=== PATIENT | male | born 1985 | race Caucasian/White ===

== ENCOUNTER 2017-10-04 21:45 | Emergency (ER) | payer BC ==
[~2017-10-04] VITALS: Ht 180.3 cm; Wt 83.7 kg
[2017-10-04 22:52] LABS: HEMOGLOBIN 18.5 G/DL (12.5-16.6); MCHC 36.3 G/DL (30.0-36.0); MCV 88.2 FL (86-99); PLATELET COUNT 310 K/uL (156-360); RBC DIS.WIDTH-CV 11.7 % (11.8-14.6); RBC DIS.WIDTH-SD 37.4 % (39-53); RED BLOOD COUNT 5.78 M/uL (4.00-5.50); WHITE BLOOD COUNT 20.2 K/uL (4.1-10.2)
[2017-10-04 23:02] LABS: ALBUMIN 5.2 g/dL (3.2-4.8); CHLORIDE 103 mEq/L (99-109); POTASSIUM 4.1 mEq/L (3.7-5.4); SODIUM 141 mEq/L (136-147)
[2017-10-04 23:05] LABS: GLUCOSE 158 mg/dL (70-99); TOTAL PROTEIN 8.7 g/dL (6.4-8.3)
[2017-10-04 23:08] LABS: ALKALINE PHOSPHATASE 102 IU/L (3-129); CREATININE 1.4 mg/dL (0.6-1.3); GFR ESTIMATE (CALCULATED) > 59 mL/min/ (58.99-99999)
[2017-10-04 23:09] LABS: UREA NITROGEN (BUN) 26 mg/dL (9-23)
[2017-10-04 23:10] LABS: AST (GOT) 19 IU/L (2-34)
[2017-10-04 23:11] LABS: ALT (GPT) 25 IU/L (3-49)
[2017-10-04 23:12] LABS: LIPASE 41 U/L (1.0-51.0)
[2017-10-05 01:41] LABS: APPEARANCE CLEAR ((CLEAR)); BILIRUBIN NEGATIVE; BLOOD NEGATIVE; COLOR YELLOW ((YELLOW)); GLUCOSE (STRIP) NEGATIVE; KETONES 5; LEUKOCYTES NEGATIVE; NITRITE NEGATIVE; PROTEIN (STRIP) NEGATIVE; SPECIFIC GRAVITY 1.041 (1.000-1.030); UCUL ADDED? NO; UROBILINOGEN 0.2 MG/DL (0.2-1.0)
[2017-10-05 02:17] LABS: HEMATOCRIT 43.2 % (38.0-50.0); HEMOGLOBIN 15.2 G/DL (12.5-16.6); MCHC 35.2 G/DL (30.0-36.0); MCV 90.9 FL (86-99); PLATELET COUNT 236 K/uL (156-360); RBC DIS.WIDTH-CV 11.8 % (11.8-14.6); RBC DIS.WIDTH-SD 39.2 % (39-53); RED BLOOD COUNT 4.75 M/uL (4.00-5.50); WHITE BLOOD COUNT 14.4 K/uL (4.1-10.2)
[2017-10-05 02:23] LABS: CHLORIDE 110 mEq/L (99-109); POTASSIUM 4.5 mEq/L (3.7-5.4); SODIUM 142 mEq/L (136-147)
[2017-10-05 02:24] LABS: GLUCOSE 135 mg/dL (70-99)
[2017-10-05 02:28] LABS: CREATININE 1.1 mg/dL (0.6-1.3); GFR ESTIMATE (CALCULATED) > 59 mL/min/ (58.99-99999)
[2017-10-05 02:29] LABS: UREA NITROGEN (BUN) 22 mg/dL (9-23)
[2017-10-05] MEDS ORDERED: ZOFRAN ODT4 MG PO (02:53)
[2017-10-05 04:52] VITALS: BP 110/64
== END 2017-10-05 04:52 | disposition home or self-care (01) ==
LOC: EME 21:45
PROVIDERS: Physician Assistant
DX: R11.2 Nausea with vomiting, unspecified (principal); R19.7 Diarrhea, unspecified; E86.0 Dehydration; N17.9 Acute kidney failure, unspecified
CPT/HCPCS: 74019; 74177; 80048; 80053; 81003; 83605; 83630; 83690; 85027; 87040; 87177; 87493; 87506; 99281; 99285; J2405; J2765; J7030